=== PATIENT | male | born 1990 | race Two or more races ===

== ENCOUNTER 2024-08-05 22:23 | Emergency (ER) | payer BC, MEDICAID ==
[~2024-08-05] VITALS: Ht 188 cm; Wt 70.5 kg
[2024-08-05 23:06] VITALS: BP 124/73; PULSE 85; RESP 18; O2SAT 98
[2024-08-05 23:08] LABS: PLATELET COUNT (AUTO) 226 K/uL (150-450); RED BLOOD CELL COUNT(AUTO) 3.89 MIL/uL (4.50-5.90); RED CELL DISTRIBUTION WIDTH 14.1 % (11.5-14.5); WHITE BLOOD COUNT (AUTO) 8.7 K/uL (4.5-11.0)
[2024-08-05 23:16] LABS: CALCIUM, TOTAL 8.5 mg/dL (8.8-10.5); CREATININE 0.65 mg/dL (0.60-1.30); GLOMERULAR FILTR. RATE CALC > 60 mL/min (>60); GLUCOSE,RANDOM 105 mg/dL (70-110); SODIUM SERUM 143 mmol/L (136-145); UREA NITROGEN, BLOOD 18 mg/dL (7-18)
== END 2024-08-06 00:13 | disposition home or self-care (01) ==
LOC: EMS 23:14
DX: M25.562 Pain in left knee (principal); G89.29 Other chronic pain; Z98.890 Other specified postprocedural states
CPT/HCPCS: 80048; 85025; 99283